=== PATIENT | female | born 2000 | race Caucasian/White ===

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

== ENCOUNTER 2021-01-17 14:56 | Emergency (ER) | payer MEDICAID, OTHER ==
[~2021-01-17] VITALS: Ht 157.5 cm; Wt 97.5 kg
[~2021-01-17 14:56] MED LIST changes: +ACET-704 PO; +SILV20CR14 TP
[2021-01-17 15:35] VITALS: BP 103/64
== END 2021-01-17 17:28 | disposition left against medical advice (07) ==
LOC: ER 14:56
DX: O46.91 Antepartum hemorrhage, unspecified, first trimester (principal); Z3A.01 Less than 8 weeks gestation of pregnancy
CPT/HCPCS: 81025